=== PATIENT | female | born 1970 | race African-American/Black ===

== ENCOUNTER 2020-08-15 11:09 | Outpatient (CLI) | payer OTHER ==
--- NOTE | 2020-08-15 12:49 | XRay Report ---
LEFT FINGERS 3 VIEWS INDICATION: Left finger pain. COMPARISON: None. IMPRESSION: 3 views of the left index finger including the whole hand are presented. No acute osseo us abnormality or joint pathology is appreciated. No bony lesion. The soft tissues are unremarkable. BILATERAL KNEES 3 VIEWS INDICATION: BILATERAL KNEE PAIN. COMPARISON: None. IMPRESSION: No acute osseous or soft tissue abnormality. Mild osteoarthritic changes are noted in the medial compartment and patellofemoral spaces of the right knee. Mild to moderate osteoarthritic changes are noted in the medial compartment and patellofemoral space in the left knee. Small left kne e effusion is identified on the lateral image. No right knee effusion. Signer Name: Raymundo Ernandez Jr, MD Signed: 08/15/2020 12:45 PM Workstation Name: [id number]
== END 2020-08-15 11:10 | disposition home or self-care (01) ==
LOC: XRAY 11:09
DX: M17.0 Bilateral primary osteoarthritis of knee (principal); M25.462 Effusion, left knee; M25.542 Pain in joints of left hand